=== PATIENT | male | born 1995 | race Caucasian/White ===

== ENCOUNTER 2018-04-30 15:02 | Emergency (ER) | payer BC ==
[~2018-04-30] VITALS: Ht 175.2 cm; Wt 72.6 kg
[~2018-04-30 15:02] MED LIST: IBU800 MG PO
[2018-04-30 15:33] LABS: BILIRUBIN NEGATIVE (NEGATIVE); BLOOD NEGATIVE (NEGATIVE); CLARITY CLEAR (CLEAR); COLOR YELLOW (YELLOW); GLUCOSE NEGATIVE (NEGATIVE); KETONE NEGATIVE (NEGATIVE); LEUKO ESTERASE NEGATIVE (NEGATIVE); NITRITE NEGATIVE (NEGATIVE); SPECIFIC GRAVITY <= 1.005 (1.005-1.030); UROBILINOGEN 0.2 E.U./dl (0.2-1.0)
[2018-04-30 15:45] LABS: EPITHELIAL CELLS 0-2; WBC 0-2 wbc/hpf (0-5)
== END 2018-04-30 17:22 | disposition home or self-care (01) ==
LOC: ED 15:02
PROVIDERS: Physician Assistant
DX: N50.3 Cyst of epididymis (principal); R30.0 Dysuria; Z11.3 Encounter for screening for infections with a predominantly sexual mode of transmission

== ENCOUNTER 2018-08-10 14:03 | Emergency (ER) | payer BC ==
[~2018-08-10] VITALS: Ht 175.2 cm; Wt 72.6 kg
[2018-08-10 14:30] LABS: BILIRUBIN NEGATIVE (NEGATIVE); BLOOD NEGATIVE (NEGATIVE); CLARITY CLEAR (CLEAR); COLOR YELLOW (YELLOW); GLUCOSE NEGATIVE (NEGATIVE); KETONE NEGATIVE (NEGATIVE); LEUKO ESTERASE NEGATIVE (NEGATIVE); NITRITE NEGATIVE (NEGATIVE); PH 6.5 (5.0-9.0); UROBILINOGEN 0.2 E.U./dl (0.2-1.0)
[2018-08-10 14:37] LABS: BACTERIA 1+; WBC 0-2 wbc/hpf (0-5)
[2018-08-13 18:05] LABS: GONOCOCCUS BY NAA Negative (Negative)
== END 2018-08-10 15:22 | disposition home or self-care (01) ==
LOC: ED 14:03
PROVIDERS: Nurse Practitioner Family
DX: N50.812 Left testicular pain (principal); R30.0 Dysuria; N48.89 Other specified disorders of penis; R03.0 Elevated blood-pressure reading, without diagnosis of hypertension; Z11.3 Encounter for screening for infections with a predominantly sexual mode of transmission

== ENCOUNTER 2025-02-12 15:04 | Emergency (ER) | payer OTHER ==
[~2025-02-12] VITALS: Ht 175.2 cm; Wt 68.0 kg
[2025-02-12] MEDS ORDERED: Lidocaine Hydrochloride 5 ML AMP SC ONE (15:25)
[2025-02-12] MEDS ORDERED: CEPHALEXIN500 M1 PO (16:08)
== END 2025-02-12 16:12 | disposition home or self-care (01) ==
LOC: ED 15:04
DX: S61.012A Laceration without foreign body of left thumb without damage to nail, initial encounter (principal); W29.3XXA Contact with powered garden and outdoor hand tools and machinery, initial encounter; Y93.89 Activity, other specified; Y92.89 Other specified places as the place of occurrence of the external cause; Y99.8 Other external cause status

== ENCOUNTER 2025-02-24 19:24 | Emergency (ER) | payer OTHER ==
[~2025-02-24] VITALS: Ht 175.2 cm; Wt 68.0 kg
[~2025-02-24 19:24] MED LIST changes: +CEPHALEXIN500 M1 PO
== END 2025-02-24 20:24 | disposition home or self-care (01) ==
LOC: ED 19:24
DX: S61.412D Laceration without foreign body of left hand, subsequent encounter (principal); Z48.02 Encounter for removal of sutures; W29.3XXD Contact with powered garden and outdoor hand tools and machinery, subsequent encounter